=== PATIENT | female | born 1990 | race Hispanic/Latino ===

== ENCOUNTER 2017-10-12 03:48 | Emergency (ER) | payer OTHER ==
--- NOTE | 2017-10-12 04:35 | ED PDOC ---
HPI: CCC, URI, Sore Throat Time Seen by Provider: 10/12/17 04:21 Chief Complaint (Nursing): ENT Problem Chief Complaint (Provider): Ear Pain History Per: Patient History/Exam Limitations: no limitations Onset/Duration Of Symptoms: Hrs (since yesterday, worsened at 1am) Additional Complaint(s): 27 year old female presents to the ED with worsening right ear pain since 1 am. Patient is also experiencing associated cough and nasal congestion since 10/10. Patient was evaluated on Monday at Urgent Care, received a rapid strep test that was found to be negative. Diagnosed with a viral upper respiratory infection and was advised to take Advil for pain as needed. Patient took Advil at 3 am today with no relief. Denies fever, chest pain, shortness of breath, vomiting, nausea, recent travels, sicknesses, drainage of swimming. Patient uses q tips. PMD: None LMP: 09/21/17 Past Medical History Reviewed: Historical Data, Nursing Documentation, Vital Signs Vital Signs: Last Vital Signs Temp 98.3 F 10/12/17 04:42 Pulse 88 10/12/17 04:42 Resp 15 10/12/17 04:42 BP 137/78 10/12/17 04:42 Pulse Ox 99 10/16/17 19:00 - Medical History PMH: No Chronic Diseases - Surgical History Other surgeries: Lap Band - Family History Family History: States: Diabetes - Social History Current smoker - smoking cessation education provided: No Alcohol: Social Drugs: Denies - Home Medications Home Medications: Ambulatory Orders Medication Instructions Recorded Azithromycin [Zithromax Tri-Mason] 500 mg PO DAILY #3 tablet 10/12/17 - Allergies Allergies/Adverse Reactions: Allergies Allergy/AdvReac Type Severity Reaction Status Date / Time Penicillins Allergy RASH Verified 10/12/17 04:12 Review of Systems Constitutional: Negative for: Fever ENT: Positive for: Nose Congestion Cardiovascular: Negative for: Chest Pain Respiratory: Positive for: Cough. Negative for: Shortness of Breath Gastrointestinal: Negative for: Nausea, Vomiting, Diarrhea Physical Exam - Reviewed Nursing Documentation Reviewed: Yes Vital Signs Reviewed: Yes - Physical Exam Comments: GENERAL APPEARANCE: Patient is awake, alert, oriented x 3, tearful and is in mild painful distress. SKIN: Warm, dry; (-) cyanosis. NECK: Supple, FROM ENMT: Canals: (-) erythema (-) cerumen impaction, TMs: (+) right TM bulging and (+) erythema, (-)effusion, (-) perforation,(-) vesicles, other TM normal. Frontal / maxillary sinuses : (-) tenderness. (-) TMJ tenderness. Pharynx: Clear; (-) erythema, (-) exudate (+) 3+ tonsilar hypertrophy. (+) Uvula midline. Airway patent: (-) stridor. NECK: Supple, FROM (-) stiffness, (-) tenderness, (-) lymphadenopathy. LUNGS: clear to auscultation bilaterally, (-) wheezing, (-) rhonchi (-) rales. Speaking in full sentences, respirations even and nonlabored CARDIAC: RRR, (-) murmurs, (-) gallops. NEURO: Mental status as above. Gait steady, speech clear. - Laboratory Results Urine POC: Negative - ECG O2 Sat by Pulse Oximetry: 99 (RA) Pulse Ox Interpretation: Normal Medical Decision Making Medical Decision Making: Time: 424 Impression: otitis media of right ear, otalgia Plan: -- Test --Acetaminophen 650 mg PO --Tramadol 50 mg PO (Patient is not driving home) --Azithromycin 500 mg PO : negative Time: 441 Patient remains awake, alert, oriented x 3 and is laying in bed comfortably. Pain improved. On exam, neck is supple, lungs are clear, abdomen is soft and non tender, heart is at regular rate and rhythm. Repeat neuro shows no focal findings. Vitals stable, stable for discharge. Advised to follow up with primary care physician/clinic in 1-2 days without fail. Advised to take medication as prescribed. Return to the emergency room at any time for any new or worsening symptoms. Patient states she fully agrees with and understands discharge instructions. States that she agrees with the plan and disposition. Verbalized and repeated discharge instructions and plan. I have given the patient opportunity to ask any additional questions. Scribe Attestation: Documented by Ronna Pickett, acting as a scribe for COLUM[facility] Yap Provider Scribe Attestation: All medical record entries made by the Scribe were at my direction and personally dictated by me. I have reviewed the chart and agree that the record accurately reflects my personal performance of the history, physical exam, medical decision making, and the department course for this patient. I have also personally directed, reviewed, and agree with the discharge instructions and disposition. Disposition - Clinical Impression Clinical Impression: Acute ear infection, Right ear pain - Patient ED Disposition Is Patient to be Admitted: No Counseled Patient/Family Regarding: Diagnosis, Need For Followup, Rx Given - Disposition [facility]errals: [facility] [Outside] Disposition: Routine/Home Disposition Time: 04:31 Condition: STABLE Additional Instructions: FOLLOW UP WITH PMD/CLINIC IN 1-2 DAYS WITHOUT FAIL RETURN TO ED WITH ANY NEW OR WORSENING SYMPTOMS TAKE ANTIBIOTICS UNTIL COMPLETE. USE OTC MOTRIN AND TYLENOL NEEDED FOR PAIN. Prescriptions: Azithromycin [Zithromax Tri-Mason] 500 mg PO DAILY #3 tablet Instructions: Ear Infections (Otitis Media) Forms: [facility] (Micronesian) Print Language: WELSH - POA Present On Arrival: None
[2017-10-12 04:50] VITALS: BP 137/78; PULSE 88; RESP 15; TEMP 98.3
[2017-10-12 05:29] VITALS: O2SAT 99
== END 2017-10-12 05:08 | disposition home or self-care (01) ==
LOC: H.ER 03:48
DX: H66.91 Otitis media, unspecified, right ear (principal); Z88.0 Allergy status to penicillin